=== PATIENT | female | born 1990 | race Asian ===

== ENCOUNTER 2016-12-28 11:48 | Emergency (ER) | payer OTHER ==
[~2016-12-28] VITALS: Ht 165.1 cm; Wt 70.3 kg
[2016-12-28 11:50] VITALS: BP 111/70; TEMP 98
== END 2016-12-28 14:30 | disposition home or self-care (01) ==
LOC: ED 11:48
DX: S50.02XA Contusion of left elbow, initial encounter (principal); W17.89XA Other fall from one level to another, initial encounter; Y93.89 Activity, other specified; Y92.89 Other specified places as the place of occurrence of the external cause; Y99.8 Other external cause status
CPT/HCPCS: 99283; J1885

== ENCOUNTER 2018-05-31 12:58 | Emergency (ER) | payer OTHER ==
[~2018-05-31] VITALS: Ht 165.1 cm; Wt 80.7 kg
[2018-05-31 13:00] VITALS: TEMP 98.1
[2018-05-31 13:45] VITALS: BP 110/70
== END 2018-05-31 13:45 | disposition home or self-care (01) ==
LOC: ED 12:58
DX: K04.7 Periapical abscess without sinus (principal)
CPT/HCPCS: 96372; 99283; J1885

== ENCOUNTER 2019-01-11 10:20 | Emergency (ER) | payer OTHER ==
[~2019-01-11] VITALS: Ht 165.1 cm; Wt 81.6 kg
[2019-01-11 10:25] VITALS: TEMP 97.5
[2019-01-11 12:26] VITALS: BP 137/63
== END 2019-01-11 12:50 | disposition home or self-care (01) ==
LOC: ED 10:20
DX: N63.21 Unspecified lump in the left breast, upper outer quadrant (principal)
CPT/HCPCS: 99283

== ENCOUNTER 2020-04-03 14:35 | Emergency (ER) | payer OTHER | END 2020-04-03 14:49 | disposition home or self-care (01) | LOC: ED 14:35 | DX: R11.2 Nausea with vomiting, unspecified (principal) | CPT/HCPCS: 99281 ==

== ENCOUNTER 2020-05-24 06:12 | Emergency (ER) | payer OTHER ==
[~2020-05-24] VITALS: Ht 165.1 cm; Wt 88.5 kg
[2020-05-24 06:22] VITALS: BP 120/67; TEMP 99.6
== END 2020-05-24 07:10 | disposition home or self-care (01) ==
LOC: ED 06:12
DX: S40.011A Contusion of right shoulder, initial encounter (principal); W18.39XA Other fall on same level, initial encounter; Y92.89 Other specified places as the place of occurrence of the external cause
CPT/HCPCS: 99283

== ENCOUNTER 2021-05-12 15:58 | Emergency (ER) | payer OTHER ==
[~2021-05-12] VITALS: Ht 165.1 cm; Wt 88.5 kg
[2021-05-12 18:33] VITALS: BP 134/82; TEMP 98.4
== END 2021-05-12 18:46 | disposition home or self-care (01) ==
LOC: ED 15:58
PROC: 0HQGXZZ Repair Left Hand Skin, External Approach (ICD-10-PCS; principal; 2021-05-12)
DX: S61.412A Laceration without foreign body of left hand, initial encounter (principal); S60.222A Contusion of left hand, initial encounter; W45.8XXA Other foreign body or object entering through skin, initial encounter; Y92.89 Other specified places as the place of occurrence of the external cause
CPT/HCPCS: 90715; 96372; 99283